=== PATIENT | male | born 1985 | race African-American/Black ===

== ENCOUNTER 2018-09-18 01:16 | Inpatient (IN) | payer MEDICAID ==
[2018-09-18] VITALS (12 sets, daily range): BP systolic 100–123; BP diastolic 43–82
[~2018-09-18] VITALS: Ht 175.3 cm; Wt 83.9 kg
[2018-09-18] MEDS ORDERED: KETOROLAC 30MG/ML VIAL IV STA (01:26)
[2018-09-18] MEDS ORDERED: ACETAMINOPHEN 325MG TABLET PO STA (01:26)
[2018-09-18] MEDS ORDERED: SODIUM CHLORIDE 0.9% 1000ML BAG (SEPSIS BOLUS) IV ONE (01:30)
[2018-09-18 01:58] LABS: BASOPHILS % 0.4 % (0.0-2.0); EOSINOPHILS % 0.3 % (0.0-5.0); LYMPHOCYTES % 21.1 % (20.0-50.0); MEAN CORPUSCULAR HEMOGLOBIN 30.4 pg (28.0-32.0); MEAN CORPUSCULAR VOLUME 87.8 fL (80.0-94.0); MEAN PLATELET VOLUME 8.6 fl (7.4-10.4); NEUTROPHILS % 73.2 % (40.0-76.0); PLATELET 180 x1000/uL (130-400); RED BLOOD CELL COUNT 1.71 mill/uL (4.7-6.1); RED CELL DISTRIBUTION WIDTH 12.4 % (11.6-14.6)
[2018-09-18 02:03] LABS: HEMOGLOBIN. 5.2 g/dL (14.0-18.0)
[2018-09-18 02:05] LABS: INR 1.1; PROTHROMBIN TIME 11.4 sec (9.1-11.1)
[2018-09-18 02:15] LABS: CHLORIDE 107 mEq/L (98-107)
[2018-09-18 06:04] LABS: CLARITY URINE CLEAR (CLEAR); COLOR URINE YELLOW (YELLOW); KETONES URINE NEGATIVE (NEGATIVE); LEUKOCYTE ESTERASE URINE NEGATIVE (NEGATIVE); NITRITE URINE NEGATIVE (NEGATIVE); OCCULT BLOOD URINE NEGATIVE (NEGATIVE); PROTEIN URINE NEGATIVE (NEGATIVE); SPECIFIC GRAVITY URINE 1.017 (1.005-1.030); UROBILINOGEN URINE 0.2 E.U./dL (0.2-1.0)
[2018-09-18] MEDS ORDERED: CLONIDINE 0.1MG TABLET PO PRN (08:45)
[2018-09-18] MEDS ORDERED: NITROGLYCERIN 0.4MG TABLET SL SL PRN (08:45)
[2018-09-18] MEDS ORDERED: ACETAMINOPHEN 325MG TABLET PO PRN (08:45)
[2018-09-18] MEDS ORDERED: IPRATROPIUM/ALBUTEROL 0.5-3(2.5)MG/3ML NEB INH PRN (08:45)
[2018-09-18] MEDS ORDERED: GUAIFENESIN 200MG/10ML SUGAR FREE UDC PO PRN (08:45)
[2018-09-18] MEDS ORDERED: MAGNESIUM/ALUMINUM HYDROXIDE/SIMETHICONE 30ML UDC PO PRN (08:45)
[2018-09-18] MEDS ORDERED: ONDANSETRON HCL 4MG/2ML INJ IV PRN ×2 (08:45→16:30)
[2018-09-18] MEDS ORDERED: TRAMADOL 50MG TABLET PO PRN (08:45)
[2018-09-18] MEDS ORDERED: NA PHOS,M-B/NA PHOS,DI-BA ENEMA 118ML PR PRN (08:45)
[2018-09-18] MEDS ORDERED: LORAZEPAM 0.5MG TABLET PO PRN (08:45)
[2018-09-18 10:55] LABS: *AMPHETAMINES SCREEN URINE NEGATIVE (NEGATIVE); *BARBITURATES SCREEN URINE NEGATIVE (NEGATIVE); *BENZODIAZEPINES SCREEN URINE NEGATIVE (NEGATIVE); *COCAINE SCREEN URINE NEGATIVE (NEGATIVE)
[2018-09-18 10:56] LABS: METHADONE URINE SCREEN NEGATIVE (NEGATIVE)
[2018-09-18 10:57] LABS: OPIATES URINE SCREEN NEGATIVE (NEGATIVE); PHENCYCLIDINE URINE SCREEN NEGATIVE (NEGATIVE)
[2018-09-18 10:58] LABS: CANNABINOID URINE SCREEN NEGATIVE (NEGATIVE)
[2018-09-18] MEDS: PANTOPRAZOLE 80 MG in SODIUM CHLORIDE 0.9% 100 ML IV SCH ×2 (11:56→22:15)
[2018-09-18] MEDS ORDERED: KCL 20MEQ/100ML PREMIX 100 ML IV NR (15:30)
[2018-09-18] MEDS ORDERED: PROPOFOL 200MG/20ML VIAL IV ONE ×3 (15:56→16:15)
[2018-09-18] MEDS ORDERED: LIDOCAINE HCL/PF 1% 10 MG/ML 5ML VIAL ONE (15:56)
[2018-09-18] MEDS: DEXT 5%/0.45% NACL 1000ML 1,000 ML IV SCH ×2 (18:28→18:41)
[2018-09-18] MEDS ORDERED: SORBITOL 70% SOLN 30ML PO ONE (19:00)
[2018-09-18 19:23] LABS: HEMATOCRIT 22.8 % (42.0-52.0); HEMOGLOBIN 7.7 g/dL (14.0-18.0)
[2018-09-18 19:32] LABS: TOTAL IRON BINDING CAPACITY 262 ug/dL (250-450)
[2018-09-18] MEDS ORDERED: ZOLPIDEM TARTRATE 5MG TABLET PO PRN (21:00)
[2018-09-19 00:46] LABS: HEMOGLOBIN 7.5 g/dL (14.0-18.0)
[2018-09-19 04:00] VITALS: BP 112/61
[2018-09-19] MEDS: DEXT 5%/0.45% NACL 1000ML 1,000 ML IV SCH (05:00)
[2018-09-19] MEDS ORDERED: SORBITOL 70% SOLN 30ML PO ONE (07:00)
[2018-09-19 07:42] LABS: HEMATOCRIT 22.6 % (42.0-52.0); HEMOGLOBIN 7.7 g/dL (14.0-18.0)
[2018-09-19 08:00] VITALS: BP 116/67
[2018-09-19] MEDS ORDERED: BISACODYL 5MG TABLET PO ONE (09:00)
[2018-09-19 12:00] VITALS: BP 116/71
[2018-09-19 13:20] LABS: HEMATOCRIT 24.6 % (42.0-52.0); HEMOGLOBIN 8.4 g/dL (14.0-18.0)
[2018-09-19] MEDS ORDERED: PROPOFOL 200MG/20ML VIAL IV ONE ×2 (14:59→15:32)
[2018-09-19] MEDS ORDERED: MIDAZOLAM HCL 2 MG/2 ML VIAL ONE (14:59)
[2018-09-19] MEDS ORDERED: LIDOCAINE HCL/PF 1% 10 MG/ML 5ML VIAL ONE (15:00)
[2018-09-19] MEDS ORDERED: SIMETHICONE 40 MG/0.6 ML 30ML ONE (15:09)
[2018-09-19] MEDS ORDERED: ONDANSETRON HCL 4MG/2ML INJ IV PRN (15:45)
[2018-09-19] MEDS: FERROUS SULFATE 325MG TABLET PO SCH (18:03)
[2018-09-19 20:00] VITALS: BP 111/67
[2018-09-19] MEDS: PANTOPRAZOLE 80 MG in SODIUM CHLORIDE 0.9% 100 ML IV SCH (20:15)
[2018-09-20] VITALS: BP 114/70
[2018-09-20] MEDS: DEXT 5%/0.45% NACL 1000ML 1,000 ML IV SCH ×2 (01:00→11:00)
[2018-09-20 04:00] VITALS: BP 116/66
[2018-09-20] MEDS ORDERED: PANTOPRAZOLE 80 MG in SODIUM CHLORIDE 0.9% 100 ML IV SCH (06:00)
[2018-09-20 07:14] LABS: BASOPHILS % 0.3 % (0.0-2.0); HEMATOCRIT. 22.3 % (42.0-52.0); HEMOGLOBIN. 7.6 g/dL (14.0-18.0); LYMPHOCYTES % 27.7 % (20.0-50.0); MEAN CORPUSCULAR VOLUME 88.2 fL (80.0-94.0); MEAN PLATELET VOLUME 8.7 fl (7.4-10.4); MONOCYTES % 6.8 % (2.0-8.0); NEUTROPHILS % 63.2 % (40.0-76.0); PLATELET 184 x1000/uL (130-400); RED BLOOD CELL COUNT 2.52 mill/uL (4.7-6.1); RED CELL DISTRIBUTION WIDTH 13.6 % (11.6-14.6)
[2018-09-20 08:00] VITALS: BP 100/60
[2018-09-20] MEDS: FERROUS SULFATE 325MG TABLET PO SCH (08:37)
[2018-09-20 10:36] VITALS: BP 100/60
== END 2018-09-20 12:41 | disposition home or self-care (01) | DRG 253 ==
LOC: ER 01:26 → 6WST 05:08 → EDBEDREQ 05:18 → EDBEDREQSVC 05:18 → EDBEDREQTM 05:18 → ENRESERV 07:52
PROVIDERS: ADMIT Internal Medicine; ATTEND Internal Medicine
PROC: 0DJ08ZZ Inspection of Upper Intestinal Tract, Via Natural or Artificial Opening Endoscopic (ICD-10-PCS; principal; 2018-09-18)
PROC: 30233N1 Transfusion of Nonautologous Red Blood Cells into Peripheral Vein, Percutaneous Approach (ICD-10-PCS; 2018-09-18)
PROC: 0DJD8ZZ Inspection of Lower Intestinal Tract, Via Natural or Artificial Opening Endoscopic (ICD-10-PCS; 2018-09-19)
DX: K92.2 Gastrointestinal hemorrhage, unspecified (principal); E44.0 Moderate protein-calorie malnutrition; E83.51 Hypocalcemia; E87.6 Hypokalemia; D62 Acute posthemorrhagic anemia; E66.9 Obesity, unspecified; J45.909 Unspecified asthma, uncomplicated; Z71.3 Dietary counseling and surveillance; Z68.27 Body mass index [BMI] 27.0-27.9, adult
CPT/HCPCS: 36415; 71045; 80305; 82728; 83540; 83550; 83605; 84145; 84484; 85014; 85018; 86850; 86900; 86920; 87804; 93005; 96374; 99285; C1893; C9113; J2250; J2704; J3480; J3490; J7030; J7050; P9016

== ENCOUNTER 2018-10-01 14:35 | Emergency (ER) | payer MEDICAID ==
[~2018-10-01] VITALS: Ht 175.3 cm; Wt 91.0 kg
[2018-10-01] MEDS ORDERED: SODIUM CHLORIDE 0.9% 1,000 ML IV ONE (22:31)
[2018-10-01 22:57] LABS: CLARITY URINE CLEAR (CLEAR); COLOR URINE DARK YELLOW (YELLOW); KETONES URINE TRACE (NEGATIVE); LEUKOCYTE ESTERASE URINE TRACE (NEGATIVE); NITRITE URINE NEGATIVE (NEGATIVE); OCCULT BLOOD URINE NEGATIVE (NEGATIVE); PROTEIN URINE TRACE (NEGATIVE); SPECIFIC GRAVITY URINE 1.031 (1.005-1.030)
[2018-10-01 23:08] LABS: BASOPHILS % 0.6 % (0.0-2.0); EOSINOPHILS % 0.3 % (0.0-5.0); HEMATOCRIT. 29.4 % (42.0-52.0); HEMOGLOBIN. 9.7 g/dL (14.0-18.0); LYMPHOCYTES % 19.4 % (20.0-50.0); MEAN CORPUSCULAR HEMOGLOBIN 27.8 pg (28.0-32.0); MEAN CORPUSCULAR VOLUME 84.5 fL (80.0-94.0); MEAN PLATELET VOLUME 7.7 fl (7.4-10.4); MONOCYTES % 5.2 % (2.0-8.0); NEUTROPHILS % 74.5 % (40.0-76.0); PLATELET 324 x1000/uL (130-400); RED BLOOD CELL COUNT 3.47 mill/uL (4.7-6.1); RED CELL DISTRIBUTION WIDTH 14.1 % (11.6-14.6)
[2018-10-01 23:09] LABS: CHLORIDE 104 mEq/L (98-107)
[2018-10-01 23:10] LABS: INR 1.2; PROTHROMBIN TIME 11.7 sec (9.1-11.1)
[2018-10-01 23:10] LABS: *BARBITURATES SCREEN URINE NEGATIVE (NEGATIVE)
[2018-10-01 23:11] LABS: *AMPHETAMINES SCREEN URINE NEGATIVE (NEGATIVE); *BENZODIAZEPINES SCREEN URINE NEGATIVE (NEGATIVE); *COCAINE SCREEN URINE NEGATIVE (NEGATIVE); METHADONE URINE SCREEN NEGATIVE (NEGATIVE); OPIATES URINE SCREEN NEGATIVE (NEGATIVE); PHENCYCLIDINE URINE SCREEN NEGATIVE (NEGATIVE)
[2018-10-01 23:12] LABS: CANNABINOID URINE SCREEN PRESUMTIVE POSITIVE (NEGATIVE)
[2018-10-01 23:13] LABS: ETHANOL BLOOD < 10 mg/dL
[2018-10-01] MEDS ORDERED: POTASSIUM CHLORIDE 20MEQ TABLET SR PO ONE (23:30)
[2018-10-02 00:35] VITALS: BP 129/69
== END 2018-10-02 00:51 | disposition home or self-care (01) ==
LOC: ER 14:35
DX: F41.9 Anxiety disorder, unspecified (principal); R53.1 Weakness; E87.6 Hypokalemia; D64.9 Anemia, unspecified; K92.2 Gastrointestinal hemorrhage, unspecified; F10.20 Alcohol dependence, uncomplicated; Y90.0 Blood alcohol level of less than 20 mg/100 ml; F12.10 Cannabis abuse, uncomplicated
CPT/HCPCS: 36415; 80053; 80305; 80320; 81003; 84484; 85025; 85610; 93005; 96360; 96361; 99284; J7030; Z7610; G0480

== ENCOUNTER 2022-07-23 10:58 | Emergency (ER) | payer MEDICAID, OTHER ==
[~2022-07-23] VITALS: Ht 177.8 cm; Wt 91.0 kg
[2022-07-23 11:20] VITALS: BP 159/84
[2022-07-23] MEDS ORDERED: KETOROLAC 30MG/ML VIAL IM STA (12:16)
[2022-07-23] MEDS ORDERED: ACET-2708 PO (13:28)
== END 2022-07-23 14:26 | disposition home or self-care (01) ==
LOC: ER 10:58
DX: S93.602A Unspecified sprain of left foot, initial encounter (principal); X58.XXXA Exposure to other specified factors, initial encounter; Y93.89 Activity, other specified; Y92.89 Other specified places as the place of occurrence of the external cause; Y99.8 Other external cause status; F10.229 Alcohol dependence with intoxication, unspecified; D64.9 Anemia, unspecified; F12.10 Cannabis abuse, uncomplicated; K92.2 Gastrointestinal hemorrhage, unspecified; M79.672 Pain in left foot; Y90.0 Blood alcohol level of less than 20 mg/100 ml
CPT/HCPCS: 73610; 73630; 99284

== ENCOUNTER 2022-11-12 10:58 | Emergency (ER) | payer OTHER ==
[~2022-11-12] VITALS: Ht 175.3 cm; Wt 96.0 kg
[~2022-11-12 10:58] MED LIST: ACET-2708 PO
[2022-11-12 13:41] LABS: BASOPHILS % 0.2 % (0.0-2.0); EOSINOPHILS % 0.7 % (0.0-5.0); HEMATOCRIT. 43.9 % (42.0-52.0); HEMOGLOBIN. 15.1 g/dL (14.0-18.0); MEAN CORPUSCULAR HEMOGLOBIN 29.8 pg (28.0-32.0); MEAN CORPUSCULAR VOLUME 86.5 fL (80.0-94.0); MEAN PLATELET VOLUME 9.5 fl (7.4-10.4); MONOCYTES % 5.9 % (2.0-8.0); NEUTROPHILS % 70.2 % (40.0-76.0); PLATELET 151 x1000/uL (130-400); RED BLOOD CELL COUNT 5.07 mill/uL (4.7-6.1); RED CELL DISTRIBUTION WIDTH 13.3 % (11.6-14.6)
[2022-11-12 13:52] LABS: CHLORIDE 96 mEq/L (98-107)
[2022-11-12 14:02] LABS: ETHANOL BLOOD < 10 mg/dL
[2022-11-12] MEDS ORDERED: CHLORDIAZEPOXIDE 25MG CAPSULE PO ONE (16:00)
[2022-11-12] MEDS ORDERED: IBUPROFEN 600MG TABLET PO ONE (16:00)
[2022-11-12] MEDS ORDERED: L10 MT (16:02)
[2022-11-12 16:15] VITALS: BP 133/79
== END 2022-11-12 16:46 | disposition home or self-care (01) ==
LOC: ER 10:58
DX: F10.239 Alcohol dependence with withdrawal, unspecified (principal); R53.1 Weakness; R42 Dizziness and giddiness; F12.90 Cannabis use, unspecified, uncomplicated; Y90.0 Blood alcohol level of less than 20 mg/100 ml
CPT/HCPCS: 36415; 80053; 80320; 85025; 99283; G0480

== ENCOUNTER 2023-02-03 18:22 | Emergency (ER) | payer OTHER ==
[~2023-02-03] VITALS: Ht 175.3 cm; Wt 93.2 kg
[~2023-02-03 18:22] MED LIST changes: +L10 MT
[2023-02-03 18:35] VITALS: BP 128/79; PULSE 120; RESP 16; TEMP 98.3; O2SAT 99
== END 2023-02-03 22:42 | disposition home or self-care (01) ==
LOC: ER 19:20
DX: Z76.0 Encounter for issue of repeat prescription (principal); F12.10 Cannabis abuse, uncomplicated
CPT/HCPCS: 99281